=== PATIENT | female | born 1995 | race Caucasian/White ===

== ENCOUNTER 2023-06-19 12:24 | Emergency (ER) | payer BC, MEDICAID, OTHER ==
[~2023-06-19] VITALS: Ht 152.4 cm; Wt 64.1 kg
[2023-06-19 13:54] LABS: BILIRUBIN,URINE MODERATE (Neg); CLARITY,URINE TURBID (Clear); COLOR,URINE YELLOW (Yellow); GLUCOSE, URINE NEGATIVE (Neg); KETONES,URINE >=80 mg/dl (Neg); LEUKOCYTE ESTERASE ,URINE MODERATE (Neg); NITRITES, URINE NEGATIVE (Neg); OCCULT BLOOD,URINE TRACE-INTACT (Neg); PROTEIN,URINE 30 mg/dl (Neg)
[2023-06-19 14:04] LABS: UA COLLECTION TYPE CLN CATCH MIDSTREAM
[2023-06-19 14:06] LABS: MUCUS STRANDS MANY /LPF (Neg); SQUAMOUS EPITHELIAL CELL,UR MANY /LPF (FEW)
[2023-06-19 14:08] LABS: TRANSITIONAL EPI CELLS,URINE MANY /HPF
[2023-06-19 14:09] LABS: AMORPHOUS URATES 3+; BACTERIA,URINE 1+ /HPF (Neg); CAL OXALATE CRYSTALS 1+ /HPF (NEGATIVE)
--- NOTE | 2023-06-19 14:10 | NUR ---
UA REJECTED FOR CULTURE
[2023-06-19 14:33] LABS: BASOPHILS % (AUTO) 0.3 % (0-1); EOSINOPHILS # (AUTO) 0.1 X10'3 (0-0.9); EOSINOPHILS % (AUTO) 0.6 % (0-6); HEMATOCRIT 46.3 % (35.0-45.0); HEMOGLOBIN 15.9 g/dl (12.0-16.0); LYMPHOCYTES # (AUTO) 1.1 X10'3 (1.1-4.8); LYMPHOCYTES % (AUTO) 8.2 % (21-51); MEAN CORPUSCULAR HEMOGLOBIN 31.3 PG (27.0-31.0); MEAN CORPUSCULAR HGB CONC 34.3 g/dL (33.0-36.5); MEAN CORPUSCULAR VOLUME 91.2 FL (78-98); MEAN PLATELET VOLUME 8.2 FL (7.4-10.4); MONOCYTES # (AUTO) 0.8 X10'3 (0-0.9); MONOCYTES % (AUTO) 6.1 % (2-12); NEUTROPHILS % (AUTO) 84.8 % (42-75); PLATELET COUNT 471 X10'3 (140-440); RED BLOOD COUNT 5.08 X10'6 (4.20-5.60); RED CELL DISTRIBUTION WIDTH 14.5 % (11.5-14.5); WHITE BLOOD COUNT 12.9 X10'3 (4.5-11.0)
[2023-06-19 14:45] LABS: ALANINE AMINOTRANSFERASE 26 U/L (12-78); ALBUMIN 5.1 G/DL (3.4-5.0); ALBUMIN/GLOBULIN RATIO 1.3 (1.1-1.5); ALKALINE PHOSPHATASE 102 IU/L (46-116); ANION GAP 19 (8-16); ASPARTATE AMINO TRANSFERASE 30 U/L (10-37); BILIRUBIN,TOTAL 2.2 MG/DL (0.1-1.0); BLOOD UREA NITROGEN 8 MG/DL (7-18); BUN/CREATININE RATIO 11.1 (10.0-20.0); CALCIUM 10.3 MG/DL (8.5-10.1); CHLORIDE 93 MMOL/L (99-107); CREATININE 0.72 MG/DL (0.40-0.90); GLUCOSE 101 MG/DL (70-104); LIPASE 19 U/L (16-77); POTASSIUM 3.2 MMOL/L (3.5-5.1); SODIUM 135 MMOL/L (135-145); TOTAL CARBON DIOXIDE 22.9 MMOL/L (24-32); TOTAL PROTEIN 9.1 G/DL (6.4-8.2); eCRCL 82 ML/MIN; eGFR > 90 ML/MIN
[2023-06-19] MEDS ORDERED: ondansetron/PF 4mg/2ml inj IV ONE ×2 (21:35→23:05)
[2023-06-19] MEDS ORDERED: normal saline 1000ML IV soln IVB ONE (21:35)
[2023-06-19] MEDS ORDERED: CefTRIAXone 2gm/D5W 50ml BAG 50 ML IV ONE (21:35)
[2023-06-19] MEDS ORDERED: morphine 4 MG/ML inj SYRINge IV ONE (21:35)
[2023-06-19] MEDS ORDERED: normal saline 1000ml 1,000 ML IV ONE (21:40)
[2023-06-19 22:19] LABS: URINE HCG NEGATIVE (NEG)
[2023-06-19 22:25] LABS: LIPASE 22 U/L (16-77)
[2023-06-19] MEDS ORDERED: dextrose 5%-normal saline 1,000 ML IV ONE (23:05)
[2023-06-19] MEDS ORDERED: proCHLORperazine 10 MG/2 ml inj IV ONE (23:20)
[2023-06-20] MEDS ORDERED: POTASSIUM BICARB 20meq eff tab 20 MEQ TABLET.EFF PO ONE (00:10)
[2023-06-20 00:28] VITALS: TEMP 98.9
[2023-06-20] MEDS ORDERED: diphenhydrAMINE 50 mg/ml inj IV ONE (01:15)
[2023-06-20] MEDS ORDERED: metoclopramide 5 mg/ml inj IV ONE (01:15)
[2023-06-20] MEDS ORDERED: CEPH250T PO (01:17)
[2023-06-20 01:47] VITALS: BP 134/99; PULSE 76; RESP 14; O2SAT 99
== END 2023-06-20 01:51 | disposition home or self-care (01) ==
LOC: ER 12:25
DX: K52.9 Noninfective gastroenteritis and colitis, unspecified (principal); N39.0 Urinary tract infection, site not specified
CPT/HCPCS: 36415; 74176; 76700; 80053; 81001; 81025; 83690; 84484; 85025; 96365; 96375; 99285; J0696; J0780; J1200; J2270; J2405; J2765; J7042